=== PATIENT | male | born 1985 | race Caucasian/White ===

== ENCOUNTER 2017-03-24 20:43 | Emergency (ER) | payer OTHER ==
--- NOTE | ~2017-03-24 | ER ---
PATIENT'S NAME: MANOLO [facility] AGE: 31 Y [address] ROOM: [place] [address] LOCATION: [facility] ADMIT DATE: 03/24/2017 ER/Outpatient Report DISCHARGE DATE: 03/24/2017 FAMILY PHYSICIAN: PHYSICIAN, NO ATTENDING PHYSICIAN: Germania Lara Time of Arrival: 2043 hours. Time Seen: 2043 hours. IDENTIFICATION: A 31-year-old male. CHIEF COMPLAINT: Laceration. HISTORY OF PRESENT ILLNESS: The patient is a 31-year-old male who had a sharp-ended hatchet when he hit the hatchet accidentally on the left lower thigh. No other injuries. ALLERGIES: NO KNOWN DRUG ALLERGIES. CURRENT MEDICATIONS: Vitamin D. MEDICAL PROBLEMS: Prior history of head injury. SOCIAL HISTORY: The patient lives here in [place]. He works at [employer]. Tobacco use, 1 pack per day. Alcohol use, denies. Drug use, denies. REVIEW OF SYSTEMS: All systems reviewed and negative other than what is noted in the HPI. Last tetanus, uncertain. PHYSICAL EXAMINATION: VITAL SIGNS: Weight 91.2 kg. Blood pressure 153/88, pulse 107, respirations 18, temperature 98.2, and saturations 97% on room air. GENERAL: A pleasant 31-year-old male, in no acute distress. HEENT: Unremarkable. LUNGS: Clear to auscultation. HEART: Regular rate and rhythm. ABDOMEN: Soft, nondistended, and nontender. SKIN: [place], warm, and dry. The patient has a 3-cm laceration just above his PATIENT'S NAME: MANOLO [facility] AGE: 31 Y [address] ROOM: [place] [address] LOCATION: [facility] ADMIT DATE: 03/24/2017 ER/Outpatient Report DISCHARGE DATE: 03/24/2017 FAMILY PHYSICIAN: PHYSICIAN, NO ATTENDING PHYSICIAN: Germania Lara left knee. No active bleeding. NEUROLOGIC: The patient is neurovascularly intact. LABORATORY DATA AND X-RAYS: X-ray negative for acute fracture or dislocation. He has chronic changes of apophysitis. The area was prepped and draped in a sterile fashion. 1% Xylocaine without epinephrine was used for local anesthesia. Two subcutaneous sutures were placed using 4-0 Vicryl and then skin sutures were placed for skin approximation by sarkis Slater APRN student with my supervision. IMPRESSION: 3-cm laceration, left lower extremity. PLAN: Wound care instructions provided. Suture removal in 7-10 days. The patient is okay to return to work with restrictions. No heavy lifting. No prolonged standing. No lifting greater than 10 pounds. No bending. Ice and elevate as needed and restrictions for 7 days. Follow up with his primary care physician, Dr. Robb, in 07-10 days. Follow up sooner if any problems or concerns. The patient's tetanus was boosted here in the emergency room. GERMANIA LARA MD CAR/janinel /[id number] d: 03/25/17 0006 t: 03/25/17 0525, OUTPATIENT REPORT
== END 2017-03-24 21:50 | disposition disaster alternative care site (69) ==
LOC: GACC 20:43
PROC: 0HQJXZZ Repair Left Upper Leg Skin, External Approach (ICD-10-PCS; principal; 2017-03-24)
DX: S71.112A Laceration without foreign body, left thigh, initial encounter (principal); F17.210 Nicotine dependence, cigarettes, uncomplicated; Z79.899 Other long term (current) drug therapy; W27.8XXA Contact with other nonpowered hand tool, initial encounter